=== PATIENT | female | born 1945 | race American Indian/Alaskan Native ===

== ENCOUNTER 2021-01-22 13:28 | Emergency (ER) | payer MEDICARE ==
--- NOTE | 2021-01-22 14:40 | Event Note ---
ED Screening Note ED Screening Note: SOB and BLE edema right > left for a week and a half hx of CHF on lasix pitting edema BLE, worse on the RLE, there is erythema and increased warmth concern for CHF exacerbation and cellulitis This initial assessment/diagnostic orders/clinical plan/treatment(s) is/are subject to change based on patients health status, clinical progression and re- assessment by fellow clinical providers in the ED. Further treatment and workup at subsequent clinical providers discretion. Patient/guardian urged not to elope from the ED as their condition may be serious if not clinically assessed and managed. Initial orders include: labs, EKG, CXR, US
--- NOTE | 2021-01-22 15:41 | XRay Report ---
XR chest routine 2V INDICATION / CLINICAL INFORMATION: SOB, BLE edema. COMPARISON: None available. FINDINGS: SUPPORT DEVICES: None. HEART /PULMONARY VASCULATURE: The cardiac silhouette is mildly enlarged. No pulmonary vasculature con gestion. LUNGS / PLEURA: No significant pulmonary or pleural abnormality. No pneumothorax. ADDITIONAL FINDINGS: No significant additional findings. IMPRESSION: 1. No acute findings. Signer Name: Maxx Welch MD Signed: 01/22/2021 3:37 PM Workstation Name: [id number]
[2021-01-22 15:46] LABS: Basophils % (Auto) 0.3 % (0.0-1.8); Eosinophils # (Auto) 0.2 K/mm3 (0.0-0.4); Eosinophils % (Auto) 5.4 % (0.0-4.3); Hematocrit 37.1 % (30.3-42.9); Hemoglobin 12.4 gm/dl (10.1-14.3); Lymphocytes # (Auto) 1.7 K/mm3 (1.2-5.4); Lymphocytes % (Auto) 42.4 % (13.4-35.0); Mean Corpuscular HGB Conc 34 % (30-34); Mean Corpuscular Volume 88 fl (79-97); Monocytes # (Auto) 0.5 K/mm3 (0.0-0.8); Monocytes % (Auto) 11.6 % (0.0-7.3); Platelet Count 131 K/mm3 (140-440); Red Blood Count 4.24 M/mm3 (3.65-5.03); Red Cell Distribution Width 17.5 % (13.2-15.2)
[2021-01-22 16:04] LABS: Alanine Aminotransferase 24 units/L (7-56); Albumin 3.5 g/dL (3.9-5); Blood Urea Nitrogen 5 mg/dL (7-17); Hemolysis Index 6
[2021-01-22 16:05] LABS: BUN/Creatinine Ratio 8
--- NOTE | 2021-01-22 17:06 | Vascular Lab Report ---
DUPLEX DOPPLER LOWER EXTREMITY VEINS, BILATERAL INDICATION / CLINICAL INFORMATION: BLE edema, right >left. TECHNIQUE: Duplex doppler imaging was performed through the veins of both lower extremities using venous charlie lena and other maneuvers. COMPARISON: None available. FINDINGS: RIGHT COMMON FEMORAL VEIN: Negative. RIGHT FEMORAL VEIN: Negative. RIGHT POPLITEAL VEIN: Negative. RIGHT CALF VEINS: Negative. LEFT COMMON FEMORAL VEIN: Negative. LEFT FEMORAL VEIN: Negative. LEFT POPLITEAL VEIN: Negative. LEFT CALF VEINS: Negative. ADDITIONAL FINDINGS: None. IMPRESSION: 1. No sonographic evidence for DVT in either lower extremity. Signer Name: Maxx Welch MD Signed: 01/22/2021 5:01 PM Workstation Name: [id number]
[2021-01-22 17:13] VITALS: BP 149/76
--- NOTE | 2021-01-26 09:41 | Electrocardiograph Report ---
[facility] Test Date: 2021-01-22 Test Time: 14:54:05 Pat Name: ROSE PERES Department: Room: Gender: F Toppiece Chopper: MARGOTH FRIEDMANB: 1945 Requested By: FELIZ BARRON Order Number: [id number] Reading MD: Timothy Yost Measurements Intervals [place] Rate: 82 P: 36 AL: 276 QRS: 7 QRSD: 95 T: 13 QT: 392 QTc: 458 Interpretive Statements Sinus rhythm Prolonged AL interval Probable left atrial enlargement Probable anterior infarct, age indeterminate No previous ECG available for comparison Electronically Signed On 01-26-2021 9:40:47 EDT by Timothy Yost
== END 2021-01-22 21:05 | disposition left against medical advice (07) ==
LOC: ED 13:28
DX: R05 Cough (principal); Z53.21 Procedure and treatment not carried out due to patient leaving prior to being seen by health care provider
CPT/HCPCS: 36415; 71046; 80053; 82140; 83880; 84484; 85025; 93005; 93970